=== PATIENT | male | born 1965 ===

== ENCOUNTER 2017-08-05 09:11 | Emergency (ER) | payer MEDICAID ==
--- NOTE | 2017-08-05 10:07 | RAD ---
HISTORY: CP COMPARISON: None available. TECHNIQUE: Chest PA and lateral FINDINGS: LUNGS: No focal consolidation. Please note that chest x-ray has limited sensitivity for the detection of pulmonary masses. PLEURA: No significant pleural effusion identified. No definite pneumothorax . CARDIOVASCULAR: The cardiomediastinal silhouette appears within normal limits of size. OSSEOUS STRUCTURES: No acute osseous abnormality identified. VISUALIZED UPPER ABDOMEN: Unremarkable. OTHER FINDINGS: None. IMPRESSION: No focal consolidation, significant pleural effusion, or definite pneumothorax identified.
[2017-08-05 10:12] LABS: BASO % 0.6 % (0.0-2.0); EOS # 0.1 K/uL (0.0-0.7); EOS % 0.8 % (0.0-4.0); HEMATOCRIT 44.5 % (35.0-51.0); LYMPH # 1.5 K/uL (1.0-4.3); LYMPH % 20.6 % (20.0-40.0); MEAN CELL VOLUME 89.4 fL (80.0-94.0); MEAN CORPUSCULAR HEMOGLOBIN 31.5 pg (27.0-31.0); MEAN CORPUSCULAR HGB CONC 35.2 g/dL (33.0-37.0); MEAN PLATELET VOLUME 9.5 fL (7.2-11.7); MONO # 0.5 K/uL (0.0-0.8); NRBC % 0.1 % (0.0-2.0); RED CELL DISTRIBUTION WIDTH 12.7 % (11.5-14.5); WHITE BLOOD COUNT 7.4 K/uL (4.8-10.8)
[2017-08-05 10:25] LABS: CHLORIDE 103 mmol/L (98-107); SODIUM 139 mmol/L (132-148)
[2017-08-05 10:28] LABS: ALB/GLOB RATIO 1.3 (1.0-2.1); ALKALINE PHOSPHATASE 72 U/L (38-126); ALT/SGPT 39 U/L (21-72); AST/SGOT 23 U/L (17-59); BILIRUBIN,TOTAL 0.8 mg/dL (0.2-1.3); BLOOD UREA NITROGEN 13 mg/dL (9-20); CARBON DIOXIDE 26 mmol/L (22-30); GFR AFRICAN-AMERICAN > 60; GLUCOSE,RANDOM 93 mg/dL (75-110); TOTAL PROTEIN 7.4 g/dL (6.3-8.3)
[2017-08-05 10:29] LABS: CALCIUM 8.9 mg/dl (8.6-10.4)
--- NOTE | 2017-08-05 10:48 | C.PDOC ---
History Of Present Illness 51 y/o male, with no significant PMHx, presents to ED for evaluation of intermittent episodes of bilateral chest pain described as discomfort for the past 2-3 days. Pt deniesassociated shortness of breath, cough, rashes, or fever , trauma/injuries, abdominal pain. Time Seen by Provider: 08/05/17 09:26 Chief Complaint (Nursing): Chest Pain History Per: Patient History/Exam Limitations: no limitations Onset/Duration Of Symptoms: Days, Intermittent Episodes Current Symptoms Are (Timing): Still Present Severity: Mild Quality: "Pain" Associated Symptoms: denies: Nausea, Dyspnea, Diaphoresis, Syncope Modifying Factors: None Exacerbating Factors: None Alleviating Factors: None Additional History Per: Patient Past Medical History Reviewed: Historical Data, Nursing Documentation, Vital Signs Vital Signs: Last Vital Signs Temp 98.2 F 08/05/17 13:15 Pulse 75 08/05/17 13:15 Resp 16 08/05/17 13:15 BP 122/88 08/05/17 13:15 Pulse Ox 100 08/05/17 13:15 - Medical History PMH: No Chronic Diseases Family History: States: CAD - Social History Hx Tobacco Use: No Hx Alcohol Use: Yes Hx Substance Use: No - Immunization History Hx Tetanus Toxoid Vaccination: No Hx Influenza Vaccination: No Hx Pneumococcal Vaccination: No Review Of Systems Except As Marked, All Systems Reviewed And Found Negative. Constitutional: Negative for: Fever, Chills Cardiovascular: Positive for: Chest Pain. Negative for: Palpitations, Edema, Light Headedness Respiratory: Negative for: Cough, Shortness of Breath Gastrointestinal: Negative for: Nausea, Vomiting, Abdominal Pain Skin: Negative for: Rash, Bruising Neurological: Negative for: Headache, Dizziness Physical Exam - Physical Exam Appears: Well, Non-toxic, No Acute Distress Skin: Warm, Dry, No Rash Head: Atraumatic, Normacephalic Eye(s): bilateral: Normal Inspection, EOMI Oral Mucosa: Moist Neck: Normal, Normal ROM, Supple Chest: Symmetrical, No Tenderness Cardiovascular: Rhythm Regular, No Murmur Respiratory: Normal Breath Sounds, No Rales, No Rhonchi, No Wheezing Gastrointestinal/Abdominal: Normal Exam, Bowel Sounds, Soft, No Tenderness Extremity: Normal ROM, No Pedal Edema Neurological/Psych: Oriented x3 ED Course And Treatment - Laboratory Results Result Diagrams: 08/05/17 10:08 09/21/17 10:08 ECG: Interpreted By Me, Viewed By Me ECG Rhythm: Sinus Rhythm ECG Interpretation: No Acute Changes Interpretation Of ECG: Normal axis. No acute ST/T wave changes. Rate From EC (bpm) O2 Sat by Pulse Oximetry: 99 (on RA) Pulse Ox Interpretation: Normal - Radiology CXR: Interpreted by Me, Viewed By Me CXR Interpretation: Yes: No Acute Disease. No: Infiltrates Progress Note: Blood work (cardiac enzymes x 2), EKG and CXR ordered and reviewed. Reevaluation Time: 13:05 Reassessment Condition: Improved (Patient reassessed, is resting comfortaly, without current CP/SOB/palpitations. Blood work, including JOSE ANTONIO x 2 and D-dimer , were WNL. EKG and CXR also WNL. Patient's only cardiac risk factor is h/o CAD in parent - do not suspect cardiac etiology for current pain. He was instructed to follow up with PMD in 1-2 days, and understands he should return to ED if symptoms worsen.) Disposition Counseled Patient/Family Regarding: Studies Performed, Diagnosis, Need For Followup, Rx Given - Disposition Referrals: Connie Sanchez MD [Medical Doctor] - Disposition: HOME/ ROUTINE Disposition Time: 13:05 Condition: STABLE Additional Instructions: SEGUIMIENTO CON MONTG[place]ERY MDICO EN 1-2 MIRANDA DEVUELVA A LA CHANDRA DE EMERGENCIA SI LOS SNTOMAS EMPEORARAN Prescriptions: Naproxen [Naprosyn Tab] 375 mg PO BID PRN #20 tab PRN Reason: pain Instructions: Noncardiac Chest Pain (ED) Forms: [employer] (Albanian) Print Language: [id number] - Clinical Impression Clinical Impression: Non-cardiac chest pain - Scribe Statement The provider has reviewed the documentation as recorded by the Scribe Robert Rausch All medical record entries made by the Scribe were at my direction and personally dictated by me. I have reviewed the chart and agree that the record accurately reflects my personal performance of the history, physical exam, medical decision making, and the department course for this patient. I have also personally directed, reviewed, and agree with the discharge instructions and disposition.
[2017-08-05 13:16] VITALS: BP 122/88; PULSE 75; RESP 16; TEMP 98.2
[2017-08-07 14:10] VITALS: O2SAT 99
--- NOTE | 2017-08-09 16:44 | CARD ---
APPROVED REPORT EKG Measurement Heart [id number] <Conclusion> Normal sinus rhythm Normal ECG
== END 2017-08-05 13:25 | disposition home or self-care (01) ==
LOC: C.ER 09:11
DX: R07.89 Other chest pain (principal)

== ENCOUNTER 2018-07-06 16:17 | Emergency (ER) | payer MEDICAID ==
[2018-07-06 16:41] VITALS: BMI 29.9
[2018-07-06 16:42] VITALS: BP 144/90; PULSE 77; RESP 18; TEMP 98.4; O2SAT 99
[2018-07-06] MEDS ORDERED: Neomycin/Polymyxin/Hydrocort Otic Soln BOTTLE AS ONE (16:57)
--- NOTE | 2018-07-06 16:57 | C.PDOC ---
History Of Present Illness CC: Left ear pain Patient is a 52 year old male with past medical history of hypercholesterolemia , who presents to the ED with left ear pain that has been on-going for 3-4 days. Patient denies any symptoms of fever, chills, ear discharge, trismus, jaw pain, trauma to the left ear, recent sickness and sick contact. Chief Complaint (Nursing): ENT Problem History Per: Patient History/Exam Limitations: no limitations Onset/Duration Of Symptoms: Days Current Symptoms Are (Timing): Still Present Severity: Moderate Pain Scale Rating Of: 5 Location: Left inner ear pain Past Medical History Vital Signs: Last Vital Signs Temp 98.4 F 07/06/18 16:40 Pulse 77 07/06/18 16:40 Resp 18 07/06/18 16:40 BP 144/90 07/06/18 16:40 Pulse Ox 99 07/06/18 16:57 - Medical History PMH: Hypercholesterolemia Family History: States: No Known Family Hx, CAD - Social History Hx Tobacco Use: No Hx Alcohol Use: Yes Hx Substance Use: No - Immunization History Hx Tetanus Toxoid Vaccination: No Hx Influenza Vaccination: No Hx Pneumococcal Vaccination: No Review Of Systems Constitutional: Negative for: Fever, Chills, Weakness, Malaise, Weight loss Eyes: Negative for: Pain, Vision Change ENT: Positive for: Ear Pain. Negative for: Ear Discharge, Nose Pain, Nose Discharge, Nose Congestion, Mouth Pain, Mouth Swelling, Throat Pain, Throat Swelling Cardiovascular: Negative for: Chest Pain, Palpitations, Orthopnea, Edema Respiratory: Negative for: Cough, Shortness of Breath, SOB with Excertion, Wheezing Gastrointestinal: Negative for: Nausea, Vomiting, Abdominal Pain, Diarrhea, Constipation Musculoskeletal: Negative for: Neck Pain, Shoulder Pain, Arm Pain, Back Pain, Hand Pain Skin: Negative for: Rash, Lesions Neurological: Positive for: Headache. Negative for: Weakness, Numbness, Confusion, Seizures, Altered Mental Status, Dizziness Physical Exam - Physical Exam Appears: No Acute Distress Skin: Normal Color, Warm Head: Atraumatic, Normacephalic Eye(s): bilateral: Normal Inspection, PERRL, EOMI Ear(s): Left: TM Obscured By Wax, Other (Left ear macerated tissue ) Nose: Normal Oral Mucosa: Moist Tongue: Normal Appearing Lips: Normal Appearing Gingiva: Normal Appearing Throat: Normal, No Erythema, No Exudate, No Drooling, No Mass Neck: Normal, Normal ROM Cardiovascular: Rhythm Regular Respiratory: Normal Breath Sounds Gastrointestinal/Abdominal: Normal Exam, Bowel Sounds, Soft, No Tenderness Extremity: Normal ROM, No Tenderness, No Pedal Edema, No Calf Tenderness Extremity: Bilateral: Atraumatic Neurological/Psych: Oriented x3, Normal Speech, Normal Cognition, Normal Cranial Nerves ED Course And Treatment O2 Sat by Pulse Oximetry: 99 Disposition Discussed With DrYoung: Nate Albert - Disposition Disposition: HOME/ ROUTINE Disposition Time: 17:06 Condition: STABLE Additional Instructions: Please discharge patient home Please use cortisporin ear drop, 3 drops in the left ear three times per day for 5 days and motrin 600mg PO Q6H as needed for pain Please avoid daily use of Qtips Please follow up with your primary care physician in 1-2 days Please take care Prescriptions: Ibuprofen [Motrin Tab] 600 mg PO Q6 PRN #15 tab PRN Reason: Pain, Severe (8-10) Neomycin/Polymyxin/Hydrocort [Cortisporin Otic Soln] 3 drop TID #1 bottle Forms: [employer] (Albanian) - Clinical Impression Clinical Impression: Left ear pain
== END 2018-07-06 17:33 | disposition home or self-care (01) ==
LOC: C.ER 16:17
DX: H92.02 Otalgia, left ear (principal)

== ENCOUNTER 2018-12-19 15:30 | Emergency (ER) | payer OTHER, MEDICAID ==
[2018-12-19 15:30] VITALS: BMI 29.9
[2018-12-19 15:40] VITALS: RESP 18; TEMP 98.5; O2SAT 98
--- NOTE | 2018-12-19 17:14 | RAD ---
Date of service: 12/19/2018 PROCEDURE: Radiographs of the Left Shoulder HISTORY: injury COMPARISON: No prior. FINDINGS: BONES: Normal. No fracture. JOINTS: Normal. Glenohumeral and acromioclavicular joints preserved. No osteoarthritis. SOFT TISSUES: Normal. OTHER FINDINGS: None. IMPRESSION: Normal radiographs of the left shoulder.
--- NOTE | 2018-12-19 17:14 | RAD ---
Date of service: 12/19/2018 PROCEDURE: Left Femur Radiographs. HISTORY: injury COMPARISON: None. TECHNIQUE: AP and Lateral Radiographs of the left femur. FINDINGS: FEMUR: Normal. No fracture. SOFT TISSUES: Normal. OTHER FINDINGS: None. IMPRESSION: Unremarkable radiographs of the left femur.
--- NOTE | 2018-12-19 17:19 | C.PDOC ---
History Of Present Illness 53 year old male presents to the ED for evaluation of left shoulder and left leg pain after he sustained a fall at work earlier today. Patient states he was on a ladder, approximately five feet off the ground, when he lost his footing and fell onto the ground. Patient states he has been able to walk, but reports increased pain with movement of his left shoulder. Patient denies head injury, loss of consciousness, chest pain, rib pain, shortness of breath, abdominal pain, dizziness. - HPI Chief Complaint (Nursing): Trauma History Per: Patient History/Exam Limitations: no limitations Onset/Duration Of Symptoms: Hrs Injury Occurred (Timing): Just Before Arrival Location Of Injury: Left: Leg, Shoulder Additional History Per: Patient Past Medical History Reviewed: Historical Data, Nursing Documentation, Vital Signs Vital Signs: Last Vital Signs Temp 98.5 F 12/19/18 15:37 Pulse 86 12/19/18 15:37 Resp 18 12/19/18 15:37 BP 132/84 12/19/18 15:37 Pulse Ox 98 12/19/18 15:37 - Medical History PMH: Hypercholesterolemia Surgical History: No Surg Hx Family History: States: CAD - Social History Hx Tobacco Use: No Hx Alcohol Use: No Hx Substance Use: No - Immunization History Hx Tetanus Toxoid Vaccination: No Hx Influenza Vaccination: No Hx Pneumococcal Vaccination: No Review Of Systems Constitutional: Negative for: Fever, Chills, Weakness ENT: Negative for: Mouth Swelling Cardiovascular: Negative for: Chest Pain Respiratory: Negative for: Cough, Shortness of Breath Gastrointestinal: Negative for: Nausea, Vomiting Musculoskeletal: Positive for: Shoulder Pain (left), Leg Pain (left). Negative for: Back Pain Skin: Negative for: Rash Neurological: Negative for: Weakness, Numbness, Dizziness Physical Exam - Physical Exam Appears: Well, Non-toxic, No Acute Distress Skin: Normal Color, Warm, No Rash, No Ecchymosis (left shoulder ), No Other (abrasions to the left shoulder ) Head: Atraumatic, Normacephalic Eye(s): bilateral: Normal Inspection, PERRL, EOMI Ear(s): Bilateral: Normal (no drainage ) Nose: Normal Oral Mucosa: Moist Neck: Normal ROM, Supple Chest: Symmetrical, No Deformity, No Tenderness Respiratory: No Accessory Muscle Use, Other (normal inspiratory effort ) Gastrointestinal/Abdominal: Soft, No Tenderness, No Distention, No Guarding, No Rebound Back: No Vertebral Tenderness, No Paraspinal Tenderness, Other (ambulating with steady upright gait ) Extremity: Tenderness (to left shoulder and left lateral distal thigh ), Capillary Refill (less than 2 seconds ), No Deformity, Other (left shoulder: full passive range of motion, limited active range of motion secondary to pain. no knee effusion or knee and hip tenderness ) Pulses: Left Radial: Normal, Right Radial: Normal Neurological/Psych: Oriented x3, Normal Cranial Nerves (grossly intact ) ED Course And Treatment O2 Sat by Pulse Oximetry: 98 (on RA ) Pulse Ox Interpretation: Normal - Other Rad left shoulder XR X-Ray: Viewed By Me, Read By Radiologist Interpretation: Date of service: 12/19/2018. PROCEDURE: Radiographs of the Left Shoulder. HISTORY: injury. COMPARISON: No prior. FINDINGS: BONES: Normal. No fracture. JOINTS: Normal. Glenohumeral and acromioclavicular joints preserved. No osteoarthritis. SOFT TISSUES: Normal. OTHER FINDINGS: None. IMPRESSION: Normal radiographs of the left shoulder. left femur XR X-Ray: Viewed By Me, Read By Radiologist Interpretation: Date of service: 12/19/2018. PROCEDURE: Left Femur Radiographs. HISTORY: injury. COMPARISON: None. TECHNIQUE: AP and Lateral Radiographs of the left femur. FINDINGS: FEMUR: Normal. No fracture. SOFT TISSUES: Normal. OTHER FINDINGS: None. IMPRESSION: Unremarkable radiographs of the left femur. Medical Decision Making Medical Decision Making: Progress: Left femur and left shoulder XR ordered and reviewed. Motrin PO given for pain. Disposition Counseled Patient/Family Regarding: Studies Performed, Diagnosis, Need For Followup - Disposition Disposition: HOME/ ROUTINE Disposition Time: 17:24 Condition: STABLE Additional Instructions: [place] ibuprofeno 600 mg por va oral 3 veces al da segn sea necesario para el dolor. 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 - Scribe Statement The provider has reviewed the documentation as recorded by the Scribe (Radha Rausch) All medical record entries made by the Scribe were at my direction and personally dictated by me. I have reviewed the chart and agree that the record accurately reflects my personal performance of the history, physical exam, m edical decision making, and the department course for this patient. I have also personally directed, reviewed, and agree with the discharge instructions and disposition.
[2018-12-19 17:35] VITALS: BP 129/72; PULSE 68
== END 2018-12-19 17:35 | disposition home or self-care (01) ==
LOC: C.ER 15:30
DX: S40.012A Contusion of left shoulder, initial encounter (principal); S70.12XA Contusion of left thigh, initial encounter; W11.XXXA Fall on and from ladder, initial encounter; Y92.89 Other specified places as the place of occurrence of the external cause; Y99.0 Civilian activity done for income or pay

== ENCOUNTER 2018-12-20 10:03 | Emergency (ER) | payer MEDICAID, OTHER ==
[2018-12-20 10:03] VITALS: BMI 29.9
[2018-12-20] MEDS ORDERED: Naproxen 550 mg Tab PO STA (10:49)
--- NOTE | 2018-12-20 11:10 | C.PDOC ---
History Of Present Illness Pt fell at work yesterday, injuring his left shoulder and left thigh. He was seen here yesterday and had negative x-rays of left shoulder and left femur. He returned today because he is still in pain and unable to return to work today. - HPI Time Seen by Provider: 12/20/18 10:33 Chief Complaint (Nursing): Trauma History Per: Patient Injury Occurred (Timing): Days Ago: (1) Location Of Injury: Left: Shoulder, Thigh Severity: Moderate Additional History Per: Prior Records Past Medical History Reviewed: Historical Data, Nursing Documentation, Vital Signs Vital Signs: Last Vital Signs Temp 98.4 F 12/20/18 10:14 Pulse 79 12/20/18 10:14 Resp 18 12/20/18 10:14 BP 129/78 12/20/18 10:14 Pulse Ox 97 12/20/18 10:14 - Medical History PMH: Hypercholesterolemia Family History: States: CAD - Social History Hx Tobacco Use: No Hx Alcohol Use: No Hx Substance Use: No - Immunization History Hx Tetanus Toxoid Vaccination: No Hx Influenza Vaccination: No Hx Pneumococcal Vaccination: No Review Of Systems Except As Marked, All Systems Reviewed And Found Negative. Constitutional: Negative for: Fever, Weakness Cardiovascular: Negative for: Chest Pain Respiratory: Negative for: Shortness of Breath Gastrointestinal: Negative for: Nausea, Vomiting, Abdominal Pain Musculoskeletal: Positive for: Shoulder Pain (left). Negative for: Neck Pain, Back Pain, Hand Pain, Foot Pain Neurological: Negative for: Weakness, Numbness, Headache Physical Exam - Physical Exam Appears: Non-toxic, No Acute Distress Skin: Normal Color, Warm, Dry Head: Atraumatic, Normacephalic Eye(s): bilateral: PERRL, EOMI Ear(s): Bilateral: Normal Neck: Normal ROM, No Midline Cervical Tenderness, No Step Off Deformity, Supple Chest: Symmetrical, No Deformity Cardiovascular: Rhythm Regular Respiratory: Normal Breath Sounds, No Accessory Muscle Use Gastrointestinal/Abdominal: Soft, No Tenderness Back: No CVA Tenderness, No Vertebral Tenderness Extremity: Normal ROM, Tenderness (left shoulder area and left lateral lower thigh area), No Calf Tenderness, No Deformity Neurological/Psych: Oriented x3, Normal Motor, Normal Sensation ED Course And Treatment O2 Sat by Pulse Oximetry: 97 Pulse Ox Interpretation: Normal - Radiology Nexus Criteria: Negative Disposition Counseled Patient/Family Regarding: Diagnosis, Need For Followup, Rx Given - Disposition Referrals: Will Sandy [Medical Doctor] - Disposition: HOME/ ROUTINE Disposition Time: 11:11 Condition: STABLE Additional Instructions: Follow up with your doctor. Return to the ER if you develop worsening of symptoms or if you have any other concerns. Prescriptions: Naproxen [Naprosyn] 1 tab PO BID PRN #20 tab PRN Reason: Pain Instructions: Shoulder Pain (DC), Contusion (DC) Forms: [employer] (Angolan) Print Language: TUNISIAN - Clinical Impression Clinical Impression: Contusion of left shoulder, Contusion of left thigh
[2018-12-20] MEDS ORDERED: Naproxen 550 mg Tab PO ONE (11:12)
[2018-12-20 11:41] VITALS: BP 122/77; PULSE 77; RESP 20; TEMP 98.1; O2SAT 98
== END 2018-12-20 11:40 | disposition home or self-care (01) ==
LOC: C.ER 10:03
DX: S40.012A Contusion of left shoulder, initial encounter (principal); S70.12XA Contusion of left thigh, initial encounter; W19.XXXA Unspecified fall, initial encounter; Y99.0 Civilian activity done for income or pay; E78.00 Pure hypercholesterolemia, unspecified